=== PATIENT | female | born 1980 | race Caucasian/White ===

== ENCOUNTER 2019-10-31 07:49 | Emergency (ER) | payer OTHER ==
[~2019-10-31] VITALS: Ht 157.5 cm; Wt 56.7 kg
[~2019-10-31 07:49] MED LIST: ABILIFY10 MG PO; BACTRIM DS TAB1 EACH PO; BACTROBAN15 GM TP; CIPRO500 MG PO; COMPAZINE25 M1 RC; DESYREL150 MG PO; DOXYCYCLINE 10100 MG PO; FLAGYL500 MG PO; HYDROCODONE-AP1 EAC6 PO; HYDROXYZINE HCL25 M1; HYDROXYZINE HCL25 M1 PO; IBUPROFEN 800800 MG PO; KEFLEX500 MG PO; LITHIUM CARBON300 M3 PO; NAPROSYN500 MG PO; NORCO 5-325 TA1 EACH PO; ONDANSETRON HCL4 M2 PO; PENICILLIN VK500 MG PO; PERCOCET 5-3251 EACH PO; PHENAZOPYRIDIN200 M2 PO; PROSAC; PROZAC40 MG; SEROQUEL400 MG PO; TOBRAMYCIN SULFA5 ML OPHTHALMIC; TOPAMAX 25 MG T25 M1; TOPAMAX100 MG PO; TRAMADOL 50 MG50 MG PO; TRAZODONE 150150 M1; TRAZODONE 150150 M1 PO; ULTRACET TABLE1 EACH PO; WELLBUTRIN SR150 MG PO; XANAX XR2 MG PO; XANAX2 MG PO; ZOFRAN ODT4 MG PO; ZOFRAN4 MG PO; [UNRECOGNIZED DRUG - OTHER]
[2019-10-31 08:20] LABS: URINE BILIRUBIN NEGATIVE (Negative); URINE BLOOD 2+ (Negative); URINE CLARITY CLEAR; URINE COLOR YELLOW; URINE GLUCOSE-RANDOM NEGATIVE (Negative); URINE KETONES NEGATIVE (Negative); URINE LEUKOCYTES-REFLEX 1+ (Negative); URINE PROTEIN 1+ (Negative); URINE SPECIFIC GRAVITY 1.015 (1.005-1.030)
[2019-10-31 08:24] LABS: HEMATOCRIT 38.1 % (37.0-47.0); HEMOGLOBIN 13.6 gm/dL (12.0-15.0); MCH 32.1 pg (26.0-34.0); MCHC 35.6 g/dL (28.0-37.0); MPV 7.7 fl. (7.2-11.1); NUCLEATED RBCS 0 /100WBC; PLATELET COUNT* 206 thou/uL (150-400); RBC 4.23 mil/uL (4.20-5.00); RDW-CV 12.7 % (10.5-14.5); WBC 18.7 thou/uL (4.0-11.0)
[2019-10-31 08:27] LABS: URINE NITRITE-REFLEX POSITIVE (Negative)
[2019-10-31 08:31] LABS: CALCIUM 8.7 mg/dL (8.5-10.1); POTASSIUM 3.7 mmol/L (3.5-5.1)
[2019-10-31 08:36] LABS: ALBUMIN 3.5 g/dL (3.4-5.0); TOTAL BILIRUBIN 0.9 mg/dL (<0.1-1.0); TOTAL PROTEIN 8.1 g/dL (6.4-8.2)
[2019-10-31 08:40] LABS: BACTERIA-REFLEX >30 Many /HPF (None Seen); CASTS None Seen /LPF (None Seen); CRYSTALS None Seen /LPF (None Seen); MUCUS None Seen strn/LPF (None Seen); SQUAMOUS 4-10 Moderate /LPF (0-3); URINE WBC-REFLEX >25 Many /HPF (0-5)
[2019-10-31] MEDS ORDERED: KEFLEX500 M1 PO (08:48)
[2019-10-31] MEDS ORDERED: ZOFRAN ODT4 MG DISSOLVE (08:48)
[2019-10-31] MEDS ORDERED: TRAMADOL 50 MG50 MG PO (08:48)
[2019-10-31 09:00] VITALS: BP 115/68
[2019-10-31 09:29] LABS: ABSOLUTE EOSINOPHILS 0.2 thou/uL (0.0-0.7); ABSOLUTE LYMPHOCYTES 1.5 thou/uL (0.8-5.3); ABSOLUTE MONOCYTES 1.1 thou/uL (0.0-1.2); ABSOLUTE NEUTROPHILS 15.9 thou/uL (1.6-8.1); PLATELET ESTIMATE ADEQUATE
== END 2019-10-31 09:01 | disposition home or self-care (01) ==
LOC: M.ERS 07:49
PROVIDERS: Emergency Medicine Emergency Medical Services
DX: N12 Tubulo-interstitial nephritis, not specified as acute or chronic (principal); F17.210 Nicotine dependence, cigarettes, uncomplicated; Z88.5 Allergy status to narcotic agent

== ENCOUNTER 2019-10-31 16:55 | Inpatient (IN) | payer OTHER ==
[2019-10-30 21:00] VITALS: BP 99/65
[~2019-10-31] VITALS: Ht 157.5 cm; Wt 56.7 kg
--- NOTE | ~2019-10-31 | EKG ---
[place] [address] ELECTROCARDIOGRAM REPORT Name: ROS LOZANO Room: [address] ADM IN ..#: [id number] Admission: 10/31/19 Attend Phys: Elisa Ann, Discharge: Date of : 82 Date of Service: 10/31/191832 Report #: [id number] THIS REPORT FOR: cc: MAN - No family physician/PCP FAM - No family physician/PCP Shailesh Cash MD ~ THIS REPORT FOR: //name// [facility] ED Test Date: 2019-10-31 Test Time: 18:33:46 Pat Name: ROS LOZANO Department: Room: [address] Gender: F [employer]: EMI : 1980 Requested By: Raghav Toth Order Number: [id number] Reading MD: Measurements Intervals [place] Rate: 96 P: 53 [place]: 127 QRS: 40 QRSD: 83 T: 41 QT: 339 QTc: 429 Interpretive Statements Sinus rhythm Compared to ECG 05/28/2014 07:29:40 No significant changes [email or web address] By: [address] [place], [place] /RA
[~2019-10-31 16:55] MED LIST changes: +KEFLEX500 M1 PO; +ZOFRAN ODT4 MG DISSOLVE
[2019-10-31 17:07] VITALS: BP 123/77
[2019-10-31 18:32] LABS: URINE BILIRUBIN NEGATIVE (Negative); URINE BLOOD 1+ (Negative); URINE CLARITY CLEAR; URINE COLOR YELLOW; URINE GLUCOSE-RANDOM NEGATIVE (Negative); URINE KETONES NEGATIVE (Negative); URINE NITRITE-REFLEX NEGATIVE (Negative); URINE PROTEIN NEGATIVE (Negative); URINE SPECIFIC GRAVITY <= 1.005 (1.005-1.030)
[2019-10-31 18:33] LABS: URINE LEUKOCYTES-REFLEX 2+ (Negative)
[2019-10-31 18:38] LABS: SQUAMOUS 4-10 Moderate /LPF (0-3); URINE WBC-REFLEX 6-15 Few /HPF (0-5)
[2019-10-31 18:39] LABS: BACTERIA-REFLEX None Seen /HPF (None Seen); CASTS None Seen /LPF (None Seen); CRYSTALS None Seen /LPF (None Seen); URINE RBC 0-2 Rare /HPF (0-2)
[2019-10-31 20:24] VITALS: BP 123/77
[2019-11-01 08:00] VITALS: BP 120/70
[2019-11-01 11:04] LABS: AMP/METHAMP POSITIVE (Negative); BARBITURATES Negative (Negative); BENZODIAZEPINES Negative (Negative); COCAINE Negative (Negative); METHADONE Negative (Negative); OPIATES Negative (Negative); PCP Negative (Negative); THC Negative (Negative)
[2019-11-01 15:56] VITALS: BP 101/67
[2019-11-01 20:00] VITALS: BP 119/66
[2019-11-02 04:51] LABS: CALCIUM 8.5 mg/dL (8.5-10.1); CREATININE 0.8 mg/dL (0.6-1.3)
[2019-11-02 05:29] LABS: HEMATOCRIT 34.7 % (37.0-47.0); MCH 32.2 pg (26.0-34.0); MCHC 34.6 g/dL (28.0-37.0); MPV 8.5 fl. (7.2-11.1); RBC 3.73 mil/uL (4.20-5.00); RDW-CV 13.2 % (10.5-14.5); WBC 9.1 thou/uL (4.0-11.0)
[2019-11-02 08:15] VITALS: BP 108/72
[2019-11-02 20:20] VITALS: BP 122/75
[2019-11-03 05:31] LABS: CALCIUM 8.1 mg/dL (8.5-10.1); CREATININE 0.8 mg/dL (0.6-1.3); POTASSIUM 3.7 mmol/L (3.5-5.1)
[2019-11-03 07:48] VITALS: BP 122/83
[2019-11-03] MEDS ORDERED: CEFUROXIME500 MG PO (13:18)
[2019-11-03 13:26] VITALS: BP 122/83
[2019-11-03 13:57] VITALS: BP 122/83
== END 2019-11-03 13:57 | disposition home or self-care (01) | DRG 872 ==
LOC: M.ERS 16:55 → M.TBA-ER 18:08 → M.3W 18:08 → M.ORTHSURG 21:05 → M.3W 21:30
PROVIDERS: Family Medicine; Nurse Practitioner Family; ADMIT Internal Medicine
DX: A41.9 Sepsis, unspecified organism (principal); N12 Tubulo-interstitial nephritis, not specified as acute or chronic; E87.1 Hypo-osmolality and hyponatremia; F20.9 Schizophrenia, unspecified; F41.9 Anxiety disorder, unspecified; F17.210 Nicotine dependence, cigarettes, uncomplicated; F31.9 Bipolar disorder, unspecified; F43.10 Post-traumatic stress disorder, unspecified; F15.10 Other stimulant abuse, uncomplicated; Z90.49 Acquired absence of other specified parts of digestive tract; Z87.442 Personal history of urinary calculi; Z95.820 Peripheral vascular angioplasty status with implants and grafts; Z79.899 Other long term (current) drug therapy; Z88.6 Allergy status to analgesic agent; Z28.21 Immunization not carried out because of patient refusal

== ENCOUNTER 2020-02-05 11:12 | Emergency (ER) | payer OTHER ==
[~2020-02-05] VITALS: Ht 157.5 cm; Wt 62.9 kg
[~2020-02-05 11:12] MED LIST changes: +CEFUROXIME500 MG PO
[2020-02-05 11:21] VITALS: BP 125/93
== END 2020-02-05 11:46 | disposition home or self-care (01) ==
LOC: M.ERS 11:12
DX: R51 Headache (principal); Z03.818 Encounter for observation for suspected exposure to other biological agents ruled out; F17.210 Nicotine dependence, cigarettes, uncomplicated; Z88.5 Allergy status to narcotic agent; Z98.51 Tubal ligation status; Z90.49 Acquired absence of other specified parts of digestive tract; Z87.442 Personal history of urinary calculi

== ENCOUNTER 2020-06-25 18:19 | Emergency (ER) | payer OTHER ==
[~2020-06-25] VITALS: Ht 157.5 cm; Wt 61.2 kg
[2020-06-25] MEDS ORDERED: NORCO 5-325 TA1 EAC2 PO (19:14)
[2020-06-25] MEDS ORDERED: KEFLEX500 M1 PO (19:14)
[2020-06-25] MEDS ORDERED: BACTRIM DS TAB1 EACH PO (19:14)
[2020-06-25] MEDS ORDERED: IBUPROFEN 800800 M1 PO (19:14)
[2020-06-25 19:23] VITALS: BP 126/70
== END 2020-06-25 19:24 | disposition home or self-care (01) ==
LOC: M.ERS 18:19
DX: L02.416 Cutaneous abscess of left lower limb (principal); F60.1 Schizoid personality disorder; F17.210 Nicotine dependence, cigarettes, uncomplicated; Z98.51 Tubal ligation status; Z90.49 Acquired absence of other specified parts of digestive tract; Z87.442 Personal history of urinary calculi; Z88.5 Allergy status to narcotic agent